=== PATIENT | male | born 1950 | race African-American/Black ===

== ENCOUNTER 2021-11-13 13:25 | Emergency (ER) | payer BC, OTHER ==
[~2021-11-13] VITALS: Ht 180.3 cm; Wt 74.8 kg
[2021-11-13 13:25] VITALS: BP 122/72
[2021-11-13 15:00] LABS: Basophils # (auto) 0 10 ^3/uL (0-0.2); Basophils % (auto) 0.4 % (0.0-2.0); Eosinophils # (auto) 0 10 ^3/uL (0-0.8); Eosinophils % (auto) 0.3 % (0.0-7.0); Hematocrit 33.9 % (41.0-53.0); Hemoglobin 11.2 g/dL (13.5-17.5); Lymphocytes # (auto) 0.3 10 ^3/uL (0.4-5.4); Mean Corpuscular Hemoglobin 27.5 pg (28.0-32.0); Mean Corpuscular Hgb Conc. 33.1 g/dL (32.0-36.0); Mean Corpuscular Volume 82.9 fL (80.0-100.0); Monocytes # (auto) 0.4 10 ^3/uL (0-1.3); Monocytes % (auto) 7.5 % (0.0-12.0); Neutrophils # (auto) 4.1 10 ^3/uL (1.6-8.6); Neutrophils % (auto) 85.8 % (37.0-80.0); Red Blood Cells 4.09 10^6/uL (4.5-5.90); Red Cell Distribution Width 17.1 % (11.8-14.3); White Blood Cell 4.8 10^3/uL (4.4-10.8)
[2021-11-13 15:10] LABS: Calcium 9.1 mg/dL (8.5-10.1); Potassium 3.4 mmol/L (3.5-5.1)
[2021-11-13 15:13] LABS: INR 1.06 (0.9-1.15); Partial Thromboplastin Time 35.3 sec (23.6-33.0)
[2021-11-13 15:14] LABS: BUN/Creatinine Ratio 15.2
== END 2021-11-13 17:25 | disposition left against medical advice (07) ==
LOC: ER 13:25 → EDBD 13:25 → ER 17:25
DX: M50.31 Other cervical disc degeneration, high cervical region (principal); D64.9 Anemia, unspecified; I11.0 Hypertensive heart disease with heart failure; I50.9 Heart failure, unspecified; Z86.73 Personal history of transient ischemic attack (TIA), and cerebral infarction without residual deficits; Z53.29 Procedure and treatment not carried out because of patient's decision for other reasons; Z88.6 Allergy status to analgesic agent
CPT/HCPCS: 36415; 71045; 80048; 83880; 84484; 85025; 85379; 85610; 85730; 93005; 93971

== ENCOUNTER 2022-04-29 18:57 | Inpatient (IN) | payer BC, OTHER ==
[~2022-04-29] VITALS: Ht 185.4 cm; Wt 2.0 kg
[2022-04-29 22:10] LABS: Eosinophils # (auto) 0 10 ^3/uL (0-0.8)
[2022-04-29 22:14] LABS: Basophils # (auto) 0 10 ^3/uL (0-0.2); Eosinophils % (auto) 0.6 % (0.0-7.0); Hematocrit 32.2 % (41.0-53.0); Hemoglobin 10.3 g/dL (13.5-17.5); Lymphocytes # (auto) 0.5 10 ^3/uL (0.4-5.4); Lymphocytes % (auto) 12.7 % (10.0-50.0); Mean Corpuscular Hemoglobin 26.3 pg (28.0-32.0); Mean Corpuscular Hgb Conc. 32.1 g/dL (32.0-36.0); Mean Corpuscular Volume 81.8 fL (80.0-100.0); Monocytes # (auto) 0.5 10 ^3/uL (0-1.3); Monocytes % (auto) 11.4 % (0.0-12.0); Neutrophils # (auto) 3.2 10 ^3/uL (1.6-8.6); Neutrophils % (auto) 74.3 % (37.0-80.0); Red Blood Cells 3.94 10^6/uL (4.5-5.90); Red Cell Distribution Width 16.7 % (11.8-14.3); White Blood Cell 4.3 10^3/uL (4.4-10.8)
[2022-04-29 22:26] LABS: Albumin 2.9 g/dL (3.4-5.0); BUN/Creatinine Ratio 24.1; Calcium 9.5 mg/dL (8.5-10.1); Potassium 3.8 mmol/L (3.5-5.1)
[2022-04-29 22:28] LABS: Bilirubin, Total 0.8 mg/dL (0.2-1.0); Total Protein 7.3 g/dL (6.4-8.2)
[2022-04-30 03:53] LABS: Urine Bacteria NONE SEEN /hpf (None Seen); Urine Blood Negative /uL (Negative); Urine Specific Gravity 1.018 (1.001-1.035); Urine WBC 138 /hpf (0 - 3); Urine WBC Clumps PRESENT /hpf (None Seen)
[2022-04-30] MEDS: ALBUMIN 25% 50 ML IV SCH ×3 (04:30→20:49)
[2022-04-30] MEDS ORDERED: AZITHROMYCIN 500MG/ 250ML 250 ML IV ONE (04:30)
[2022-04-30] MEDS ORDERED: DOCUSATE SOD 100 MG CAP PO PRN (04:30)
[2022-04-30] MEDS ORDERED: ONDANSETRON HCL 4 MG/2 ML VIAL IV PRN (04:30)
[2022-04-30] MEDS ORDERED: ACETAMINOPHEN 325 MG TAB PO PRN (04:30)
[2022-04-30] MEDS ORDERED: NITROGLYCERIN 0.4 MG SL TAB SL PRN (05:30)
[2022-04-30] MEDS ORDERED: MORPHINE SULFATE INJ 2 MG/ml SYRG IV PRN (05:30)
[2022-04-30] MEDS: cefTRIAXone 1GM/50ML D5W 50 ML IV SCH (07:10)
[2022-04-30 07:12] LABS: Basophils # (auto) 0 10 ^3/uL (0-0.2); Basophils % (auto) 0.7 % (0.0-2.0); Eosinophils # (auto) 0 10 ^3/uL (0-0.8); Eosinophils % (auto) 0.9 % (0.0-7.0); Hematocrit 31.6 % (41.0-53.0); Hemoglobin 10.5 g/dL (13.5-17.5); Lymphocytes # (auto) 0.6 10 ^3/uL (0.4-5.4); Mean Corpuscular Hemoglobin 27.2 pg (28.0-32.0); Mean Corpuscular Hgb Conc. 33.3 g/dL (32.0-36.0); Mean Corpuscular Volume 81.9 fL (80.0-100.0); Monocytes # (auto) 0.5 10 ^3/uL (0-1.3); Monocytes % (auto) 13.3 % (0.0-12.0); Neutrophils # (auto) 2.7 10 ^3/uL (1.6-8.6); Neutrophils % (auto) 69.1 % (37.0-80.0); Nucleated Red Blood Cells % 0.2 %; Red Blood Cells 3.86 10^6/uL (4.5-5.90); Red Cell Distribution Width 17.2 % (11.8-14.3); White Blood Cell 3.9 10^3/uL (4.4-10.8)
[2022-04-30 07:19] LABS: Albumin 2.7 g/dL (3.4-5.0); Calcium 9.1 mg/dL (8.5-10.1); Potassium 3.5 mmol/L (3.5-5.1)
[2022-04-30 07:24] LABS: BUN/Creatinine Ratio 24.7; Bilirubin, Total 0.9 mg/dL (0.2-1.0); Total Protein 7.2 g/dL (6.4-8.2)
[2022-04-30] MEDS ORDERED: FAMOTIDINE (10MG/ML) 2ML VL IV SCH (10:00)
[2022-04-30] MEDS ORDERED: HEPARIN SODIUM (PORCINE) 5000 UNITS/ML 1ML VIAL SC SCH (10:00)
[2022-04-30 13:00] VITALS: BP 98/69
[2022-04-30 13:08] VITALS: BP 98/69
[2022-04-30] MEDS ORDERED: ATOR40TA52 PO (13:17)
[2022-04-30 13:57] VITALS: BP 98/69
[2022-04-30] MEDS ORDERED: FURO40TA4 PO (14:18)
[2022-04-30] MEDS ORDERED: TICA90TA PO (14:18)
[2022-04-30] MEDS ORDERED: SACU1TAB PO (14:18)
[2022-04-30] MEDS ORDERED: APIX5TAB PO (14:18)
[2022-04-30] MEDS ORDERED: CARV3.1240 PO (14:18)
[2022-04-30] MEDS ORDERED: POTA1TAB4 PO (14:18)
[2022-04-30] MEDS ORDERED: METO5TAB5 (14:18)
[2022-04-30] MEDS: ZINC SULFATE 220mg CAP or TAB PO SCH (15:47)
[2022-04-30] MEDS: MULTIPLE VITAMIN TAB PO SCH (15:47)
[2022-04-30] MEDS: FUROSEMIDE 40 MG/4 ML VIAL IV SCH (15:47)
[2022-04-30] MEDS: ASCORBIC ACID 500 MG TAB PO SCH ×2 (15:48→21:36)
[2022-04-30] MEDS ORDERED: POTASSIUM CHL 10 Meq TABLET PO ONE (16:00)
[2022-04-30 16:58] VITALS: BP 114/76
[2022-04-30] MEDS ORDERED: HYDROcodone-ACET 5/325MG TAB PO PRN (17:15)
[2022-04-30] MEDS: APIXABAN 2.5 MG TAB PO SCH (21:37)
[2022-04-30] MEDS: ATORVASTATIN 20 MG TAB PO SCH (21:38)
[2022-04-30] MEDS: CARVEDILOL 3.125 MG TAB PO SCH (21:38)
[2022-04-30] MEDS: SACUBITRIL-VALSARTAN 24mg/26mg TAB PO SCH (21:39)
[2022-04-30] MEDS: AZITHROMYCIN 500MG/ 250ML 250 ML IV SCH (21:43)
[2022-04-30 22:00] VITALS: BP 114/69
[2022-05-01] MEDS ORDERED: guaiFENesin-DM 100/10mg/5ml SYR PO PRN (00:15)
[2022-05-01] MEDS: cefTRIAXone 1GM/50ML D5W 50 ML IV SCH (04:49)
[2022-05-01 05:00] VITALS: BP 103/65
[2022-05-01 06:57] LABS: Basophils # (auto) 0 10 ^3/uL (0-0.2); Basophils % (auto) 0.4 % (0.0-2.0); Eosinophils # (auto) 0 10 ^3/uL (0-0.8); Eosinophils % (auto) 0.2 % (0.0-7.0); Hematocrit 31.1 % (41.0-53.0); Lymphocytes # (auto) 0.4 10 ^3/uL (0.4-5.4); Lymphocytes % (auto) 7.5 % (10.0-50.0); Mean Corpuscular Volume 81.1 fL (80.0-100.0); Monocytes # (auto) 0.7 10 ^3/uL (0-1.3); Monocytes % (auto) 11.5 % (0.0-12.0); Neutrophils # (auto) 4.6 10 ^3/uL (1.6-8.6); Neutrophils % (auto) 80.4 % (37.0-80.0); Red Blood Cells 3.84 10^6/uL (4.5-5.90); Red Cell Distribution Width 16.9 % (11.8-14.3); White Blood Cell 5.7 10^3/uL (4.4-10.8)
[2022-05-01 07:04] LABS: Potassium 3.5 mmol/L (3.5-5.1)
[2022-05-01 07:14] LABS: Albumin 2.9 g/dL (3.4-5.0); BUN/Creatinine Ratio 24.3; Total Protein 6.9 g/dL (6.4-8.2)
[2022-05-01] MEDS ORDERED: BENZ200C64 PO (07:41)
[2022-05-01 09:00] VITALS: BP 106/62
[2022-05-01] MEDS ORDERED: POTASSIUM CHL 10 Meq TABLET PO SCH (10:00)
[2022-05-01] MEDS ORDERED: FAMOTIDINE (10MG/ML) 2ML VL IV SCH (10:00)
[2022-05-01] MEDS: FUROSEMIDE 40 MG/4 ML VIAL IV SCH (10:09)
[2022-05-01] MEDS: APIXABAN 2.5 MG TAB PO SCH ×2 (10:09→21:50)
[2022-05-01] MEDS: ZINC SULFATE 220mg CAP or TAB PO SCH (10:09)
[2022-05-01] MEDS: SACUBITRIL-VALSARTAN 24mg/26mg TAB PO SCH ×2 (10:10→21:50)
[2022-05-01] MEDS: MULTIPLE VITAMIN TAB PO SCH (10:10)
[2022-05-01] MEDS: ASCORBIC ACID 500 MG TAB PO SCH ×2 (10:10→21:51)
[2022-05-01] MEDS: CARVEDILOL 3.125 MG TAB PO SCH ×2 (10:11→21:49)
[2022-05-01 13:00] VITALS: BP 108/66
[2022-05-01 17:00] VITALS: BP 105/69
[2022-05-01] MEDS ORDERED: HYDROcodone-ACET 5/325MG TAB PO ONE (19:30)
[2022-05-01] MEDS: AZITHROMYCIN 500MG/ 250ML 250 ML IV SCH (21:49)
[2022-05-01] MEDS: ATORVASTATIN 20 MG TAB PO SCH (21:50)
[2022-05-01 22:00] VITALS: BP_SYST 124; BP_SYST 137; BP_DIAS 52; BP_DIAS 82
[2022-05-02] MEDS: HYDROcodone-ACET 5/325MG TAB PO PRN ×2 (04:29→21:07)
[2022-05-02] MEDS: cefTRIAXone 1GM/50ML D5W 50 ML IV SCH (04:30)
[2022-05-02 05:00] VITALS: BP 103/62
[2022-05-02 09:00] VITALS: BP 92/57
[2022-05-02] MEDS: ASCORBIC ACID 500 MG TAB PO SCH ×2 (10:00→21:07)
[2022-05-02] MEDS: SACUBITRIL-VALSARTAN 24mg/26mg TAB PO SCH ×2 (10:00→21:09)
[2022-05-02] MEDS: CARVEDILOL 3.125 MG TAB PO SCH ×2 (10:00→21:06)
[2022-05-02] MEDS: ZINC SULFATE 220mg CAP or TAB PO SCH (10:00)
[2022-05-02] MEDS: MULTIPLE VITAMIN TAB PO SCH (10:00)
[2022-05-02] MEDS: APIXABAN 2.5 MG TAB PO SCH ×2 (10:18→21:06)
[2022-05-02 13:00] VITALS: BP 106/56
[2022-05-02 16:53] VITALS: BP 153/90
[2022-05-02] MEDS: AZITHROMYCIN 500MG/ 250ML 250 ML IV SCH (21:05)
[2022-05-02] MEDS: ATORVASTATIN 20 MG TAB PO SCH (21:06)
[2022-05-02 22:00] VITALS: BP_SYST 136; BP_SYST 99; BP_DIAS 51; BP_DIAS 92
[2022-05-03 05:00] VITALS: BP 116/80
[2022-05-03] MEDS: cefTRIAXone 1GM/50ML D5W 50 ML IV SCH (05:12)
[2022-05-03 09:00] VITALS: BP_SYST 117; BP_SYST 91; BP_DIAS 45; BP_DIAS 78
[2022-05-03] MEDS: APIXABAN 2.5 MG TAB PO SCH (10:05)
[2022-05-03] MEDS: ZINC SULFATE 220mg CAP or TAB PO SCH (10:06)
[2022-05-03] MEDS: SACUBITRIL-VALSARTAN 24mg/26mg TAB PO SCH (10:06)
[2022-05-03] MEDS: ASCORBIC ACID 500 MG TAB PO SCH (10:06)
[2022-05-03] MEDS: CARVEDILOL 3.125 MG TAB PO SCH (10:06)
[2022-05-03] MEDS: MULTIPLE VITAMIN TAB PO SCH (10:06)
[2022-05-03 13:00] VITALS: BP 119/80
[2022-05-03] MEDS ORDERED: LEVO500T31 PO (15:11)
[2022-05-03] MEDS ORDERED: FUROSEMIDE 40 MG/4 ML VIAL IV ONE (15:15)
[2022-05-03 17:00] VITALS: BP 109/71
[2022-05-03 17:13] VITALS: BP 107/80
== END 2022-05-03 17:30 | disposition home or self-care (01) | DRG 193 ==
LOC: ER 18:57 → OVERFLOW 04-30 05:25 → WEST WING 04-30 10:27
PROVIDERS: ADMIT Nurse Practitioner Family; ATTEND Internal Medicine
DX: J18.1 Lobar pneumonia, unspecified organism (principal); I50.43 Acute on chronic combined systolic (congestive) and diastolic (congestive) heart failure; J96.20 Acute and chronic respiratory failure, unspecified whether with hypoxia or hypercapnia; N39.0 Urinary tract infection, site not specified; I42.9 Cardiomyopathy, unspecified; E88.09 Other disorders of plasma-protein metabolism, not elsewhere classified; I48.91 Unspecified atrial fibrillation; E66.9 Obesity, unspecified; I95.9 Hypotension, unspecified; Z20.822 Contact with and (suspected) exposure to COVID-19; I34.0 Nonrheumatic mitral (valve) insufficiency; I11.0 Hypertensive heart disease with heart failure; Z86.73 Personal history of transient ischemic attack (TIA), and cerebral infarction without residual deficits; Z88.5 Allergy status to narcotic agent; Z68.23 Body mass index [BMI] 23.0-23.9, adult
CPT/HCPCS: 36415; 71045; 71250; 74176; 80053; 81001; 83690; 84484; 85025; 87086; 93005; 93306; 96365; 96367; G0378; J0696